=== PATIENT | female | born 1975 | race Two or more races ===

== ENCOUNTER 2020-09-18 16:53 | Emergency (ER) | payer MEDICAID, OTHER ==
[~2020-09-18] VITALS: Ht 152.4 cm; Wt 72.3 kg
[2020-09-18 17:19] VITALS: BP 171/101
[2020-09-18] MEDS ORDERED: ketorolac tromethamine 15mg/ml inj. IM ONE (18:20)
[2020-09-18 18:43] LABS: BASOPHILS # (AUTO) 0.1 X10'3 (0-0.2); BASOPHILS % (AUTO) 0.7 % (0-1); EOSINOPHILS # (AUTO) 0.2 X10'3 (0-0.9); EOSINOPHILS % (AUTO) 2.3 % (0-6); HEMATOCRIT 37.4 % (35.0-45.0); HEMOGLOBIN 12.8 g/dl (12.0-16.0); LYMPHOCYTES # (AUTO) 2.8 X10'3 (1.1-4.8); LYMPHOCYTES % (AUTO) 33.2 % (21-51); MEAN CORPUSCULAR HEMOGLOBIN 31.3 PG (27.0-31.0); MEAN CORPUSCULAR HGB CONC 34.2 g/dL (33.0-36.5); MEAN CORPUSCULAR VOLUME 91.7 FL (78-98); MONOCYTES # (AUTO) 0.5 X10'3 (0-0.9); MONOCYTES % (AUTO) 6.2 % (2-12); NEUTROPHILS # (AUTO) 4.9 X10'3 (1.8-7.7); NEUTROPHILS % (AUTO) 57.6 % (42-75); PLATELET COUNT 389 X10'3 (140-440); RED BLOOD COUNT 4.08 X10'6 (4.20-5.60); WHITE BLOOD COUNT 8.5 X10'3 (4.5-11.0)
[2020-09-18 18:57] LABS: ALANINE AMINOTRANSFERASE 55 U/L (12-78); ALBUMIN 3.8 G/DL (3.4-5.0); ALKALINE PHOSPHATASE 73 IU/L (46-116); ANION GAP 9 (8-16); ASPARTATE AMINO TRANSFERASE 20 U/L (10-37); BILIRUBIN,TOTAL 0.3 MG/DL (0.1-1.0); BLOOD UREA NITROGEN 11 MG/DL (7-18); BUN/CREATININE RATIO 16.2 (6.6-38.0); CALCIUM 10.5 MG/DL (8.5-10.1); CHLORIDE 104 MMOL/L (99-107); CREATININE 0.68 MG/DL (0.40-0.90); GLUCOSE 87 MG/DL (70-104); POTASSIUM 3.7 MMOL/L (3.5-5.1); SODIUM 140 MMOL/L (135-145); TOTAL CARBON DIOXIDE 27.5 MMOL/L (24-32); TOTAL PROTEIN 7.6 G/DL (6.4-8.2); eGFR > 90 ML/MIN
[2020-09-18] MEDS ORDERED: IBUP-1985 PO (19:25)
== END 2020-09-18 19:39 | disposition home or self-care (01) ==
LOC: ER 16:54
DX: H53.8 Other visual disturbances (principal); R51.9 Headache, unspecified; R42 Dizziness and giddiness; I10 Essential (primary) hypertension; Z98.51 Tubal ligation status
CPT/HCPCS: 36415; 70450; 80053; 85025; 96372; 99284; J1885

== ENCOUNTER 2021-07-13 09:12 | Observation (INO) | payer OTHER ==
[2021-07-13] VITALS (10 sets, daily range): BP systolic 106–133; BP diastolic 66–85
[~2021-07-13] VITALS: Ht 152.4 cm; Wt 70.0 kg
[~2021-07-13 09:12] MED LIST: IBUP-1985 PO
[2021-07-13 10:18] LABS: BASOPHILS % (AUTO) 0.6 % (0-1); EOSINOPHILS # (AUTO) 0.1 X10'3 (0-0.9); EOSINOPHILS % (AUTO) 1.3 % (0-6); HEMATOCRIT 38.8 % (35.0-45.0); HEMOGLOBIN 13.3 g/dl (12.0-16.0); LYMPHOCYTES # (AUTO) 1.7 X10'3 (1.1-4.8); LYMPHOCYTES % (AUTO) 24.3 % (21-51); MEAN CORPUSCULAR HEMOGLOBIN 31.5 PG (27.0-31.0); MEAN CORPUSCULAR HGB CONC 34.3 g/dL (33.0-36.5); MEAN CORPUSCULAR VOLUME 91.9 FL (78-98); MEAN PLATELET VOLUME 6.7 FL (7.4-10.4); MONOCYTES # (AUTO) 0.4 X10'3 (0-0.9); MONOCYTES % (AUTO) 5.6 % (2-12); NEUTROPHILS # (AUTO) 4.9 X10'3 (1.8-7.7); NEUTROPHILS % (AUTO) 68.2 % (42-75); PLATELET COUNT 443 X10'3 (140-440); RED BLOOD COUNT 4.22 X10'6 (4.20-5.60); WHITE BLOOD COUNT 7.2 X10'3 (4.5-11.0)
[2021-07-13 10:29] LABS: ALANINE AMINOTRANSFERASE 40 U/L (12-78); ALBUMIN 3.9 G/DL (3.4-5.0); ALKALINE PHOSPHATASE 53 IU/L (46-116); ANION GAP 9 (8-16); ASPARTATE AMINO TRANSFERASE 14 U/L (10-37); BILIRUBIN,TOTAL 0.4 MG/DL (0.1-1.0); BLOOD UREA NITROGEN 16 MG/DL (7-18); CALCIUM 10.1 MG/DL (8.5-10.1); CHLORIDE 106 MMOL/L (99-107); CREATININE 0.84 MG/DL (0.40-0.90); GLUCOSE 94 MG/DL (70-104); POTASSIUM 3.6 MMOL/L (3.5-5.1); SODIUM 141 MMOL/L (135-145); TOTAL CARBON DIOXIDE 26.4 MMOL/L (24-32); TOTAL PROTEIN 7.7 G/DL (6.4-8.2); eGFR 73 ML/MIN
[2021-07-13] MEDS ORDERED: iohexol 350MG/ML 100ml bottle IV ONE ×2 (11:21→16:40)
--- NOTE | 2021-07-13 11:51 | NUR ---
PT IN CT
[2021-07-13] MEDS ORDERED: magnesium hydroxide 30ml (MOM) UD suspension PO PRN (13:10)
[2021-07-13] MEDS ORDERED: mag hydrox/Alum hydrox/simeth 30ml oral suspension PO PRN (13:10)
[2021-07-13] MEDS ORDERED: morphine 2 MG/ML inj. syringe IV PRN ×2 (13:10)
[2021-07-13] MEDS ORDERED: ondansetron/PF 4mg/2ml inj IV PRN (13:10)
[2021-07-13] MEDS ORDERED: LEVO25TA82 PO (13:29)
[2021-07-13] MEDS ORDERED: LISI1TAB51 PO (13:29)
[2021-07-13] MEDS: normal saline 1000ml 1,000 ML IV SCH (13:34)
[2021-07-13] MEDS ORDERED: fentaNYL/PF 50MCG/1 ML 2ML syringe ONE (16:40)
[2021-07-13] MEDS ORDERED: heparin 1,000unit/ml 10ml vial 10 ML ONE (16:40)
[2021-07-13] MEDS ORDERED: nitroGLYCERIN-Tridil 50MG/D5W 250 ML IV ONE (16:40)
[2021-07-13] MEDS ORDERED: midazolam 1 mg/ML 2ml injection ONE (16:40)
[2021-07-13] MEDS ORDERED: LIDOcaine 1% (10mg/ml)w/preservative injection 20ml MDV ONE (16:40)
[2021-07-13] MEDS ORDERED: verapamil 2.5 mg/ml inj IV ONE (16:40)
[2021-07-13] MEDS ORDERED: OXAZEpam 15mg capsule PO PRN (17:55)
[2021-07-13] MEDS ORDERED: proCHLORperazine 10 MG/2 ml inj IV PRN (17:55)
--- NOTE | 2021-07-13 18:33 | NUR ---
1745- pt arrived about this time, R wrist cdi, both hands cool. her R hand has normal cap refill and sensation, pulse ox on R thumb and to tele bank, sr, order to start deflation at 1845. her wrist band is at 15ml per laboratory miller. a/ox4, deny n/v, pain. sbp 124/74, hr 68, 98% RA.
--- NOTE | 2021-07-13 18:37 | NUR ---
Problems reprioritized. Patient report given, questions answered & plan of care reviewed with Danica toure.
--- NOTE | 2021-07-13 19:08 | NUR ---
Patient in room PCU 3023. I have received report from Prashanth SEO and had the opportunity to ask questions and assume patient care.
[2021-07-13] MEDS: docusate sod 100mg capsule PO SCH (19:51)
[2021-07-13] MEDS: heparin, porcine 5000 units/ml vial SQ SCH (19:51)
[2021-07-13] MEDS: acetaminophen 325mg tablet PO PRN (19:53)
--- NOTE | 2021-07-13 21:00 | NUR ---
Wrist air pressure bracelet to R wrist intact post cardiac catheterization. Deflated 3mls at a time Q 15-30 minutes. No bleeding noted. Pt. C/O soreness to R wrist puncture and medial aspect of forearm. Tylenol admin as needed f/good effect. Post cath VSS, up ad sanchez to BR, voiding w/o difficulty, appetite good, bedrest PRN.
[2021-07-14] MEDS: normal saline 1000ml 1,000 ML IV SCH ×2 (00:15→00:16)
[2021-07-14 02:00] VITALS: BP 133/75
[2021-07-14] MEDS: acetaminophen 325mg tablet PO PRN (05:39)
[2021-07-14 05:57] LABS: BASOPHILS % (AUTO) 0.7 % (0-1); EOSINOPHILS # (AUTO) 0.2 X10'3 (0-0.9); EOSINOPHILS % (AUTO) 2.1 % (0-6); HEMATOCRIT 35.6 % (35.0-45.0); HEMOGLOBIN 12.1 g/dl (12.0-16.0); LYMPHOCYTES # (AUTO) 2.5 X10'3 (1.1-4.8); LYMPHOCYTES % (AUTO) 32.9 % (21-51); MEAN CORPUSCULAR HEMOGLOBIN 31.9 PG (27.0-31.0); MEAN CORPUSCULAR VOLUME 93.7 FL (78-98); MEAN PLATELET VOLUME 6.8 FL (7.4-10.4); MONOCYTES # (AUTO) 0.6 X10'3 (0-0.9); MONOCYTES % (AUTO) 8.1 % (2-12); NEUTROPHILS # (AUTO) 4.3 X10'3 (1.8-7.7); NEUTROPHILS % (AUTO) 56.2 % (42-75); PLATELET COUNT 362 X10'3 (140-440); RED CELL DISTRIBUTION WIDTH 13.1 % (11.5-14.5); WHITE BLOOD COUNT 7.6 X10'3 (4.5-11.0)
[2021-07-14 06:00] VITALS: BP 98/57
[2021-07-14 06:24] LABS: ALBUMIN 3.2 G/DL (3.4-5.0); ANION GAP 7 (8-16); BLOOD UREA NITROGEN 15 MG/DL (7-18); BUN/CREATININE RATIO 22.7 (6.6-38.0); CALCIUM 9.3 MG/DL (8.5-10.1); CHLORIDE 110 MMOL/L (99-107); CREATININE 0.66 MG/DL (0.40-0.90); GLUCOSE 88 MG/DL (70-104); POTASSIUM 3.6 MMOL/L (3.5-5.1); SODIUM 141 MMOL/L (135-145); TOTAL CARBON DIOXIDE 24.4 MMOL/L (24-32); eGFR > 90 ML/MIN
--- NOTE | 2021-07-14 06:30 | NUR ---
Patient in room PCU 3023. I have received report from Danica SEO and had the opportunity to ask questions and assume patient care.
--- NOTE | 2021-07-14 08:00 | NUR ---
Problems reprioritized. Patient report given, questions answered & plan of care reviewed with Laura SEO.
[2021-07-14] MEDS: docusate sod 100mg capsule PO SCH (09:15)
[2021-07-14] MEDS: heparin, porcine 5000 units/ml vial SQ SCH (09:15)
[2021-07-14] MEDS ORDERED: PANT-47 PO (10:29)
[2021-07-14 11:00] VITALS: BP 120/75
--- NOTE | 2021-07-14 13:00 | NUR ---
Pt DC to home with family. Pt is a & O and in no apparent distress. Pt verbalizes understanding of all DC orders. She verbalizes the importance of following up with Dr Rosario and PCP. Pt educated about IS, breathing exercises, and taking medications appropriately. Pt given hand outs about chest pain, SOB, [facility] SS. pt's IV removed intact. Pt happy to go home. Pt worry she wants to know what is going on with her. Pt got dressed wheeled to the front and her family pick her up.
== END 2021-07-14 12:57 | disposition home or self-care (01) ==
LOC: ER 09:13 → ED HOLD 13:12 → PCU 3S 17:38
PROVIDERS: ADMIT Family Medicine; ATTEND Family Medicine
DX: R07.89 Other chest pain (principal); R94.39 Abnormal result of other cardiovascular function study; Z20.822 Contact with and (suspected) exposure to COVID-19; R06.02 Shortness of breath; I10 Essential (primary) hypertension; F41.0 Panic disorder [episodic paroxysmal anxiety]; E78.5 Hyperlipidemia, unspecified; Z98.51 Tubal ligation status
CPT/HCPCS: 36415; 71045; 71275; 80048; 80053; 83880; 84484; 85025; 87635; 93005; 93458; 96361; 96372; 96374; 99285; C1769; G0378; J1644; J2001; J2250; J2405; J3010; J7030; Q9967; 99152; A4620; A5120; J3490

== ENCOUNTER 2021-08-09 10:40 | Emergency (ER) | payer MEDICAID ==
[~2021-08-09] VITALS: Ht 152.4 cm; Wt 70.0 kg
[~2021-08-09 10:40] MED LIST changes: -IBUP-1985 PO; +LEVO25TA82 PO; +LISI1TAB51 PO; +PANT-47 PO
[2021-08-09] MEDS ORDERED: CASIRIVIMAB/IMDEVIMAB inject. 10 ML in normal saline 100ml IV soln 100 ML IV ONE (11:55)
[2021-08-09 14:35] VITALS: BP 143/90
== END 2021-08-09 13:54 | disposition home or self-care (01) ==
LOC: ER 10:40
DX: Z20.822 Contact with and (suspected) exposure to COVID-19 (principal); R07.89 Other chest pain; R05 Cough; R50.9 Fever, unspecified; R53.83 Other fatigue; I10 Essential (primary) hypertension; F41.9 Anxiety disorder, unspecified; Z98.51 Tubal ligation status; Z79.899 Other long term (current) drug therapy
CPT/HCPCS: 71045; 99291; M0243; Q0244

== ENCOUNTER 2021-08-25 17:29 | Emergency (ER) | payer MEDICAID ==
[~2021-08-25] VITALS: Ht 152.4 cm; Wt 70.5 kg
[2021-08-25 17:33] VITALS: BP 161/89
== END 2021-08-25 20:37 | disposition home or self-care (01) ==
LOC: ER 17:29
DX: M79.662 Pain in left lower leg (principal); R22.42 Localized swelling, mass and lump, left lower limb; F41.9 Anxiety disorder, unspecified; I10 Essential (primary) hypertension; Z79.899 Other long term (current) drug therapy; Z98.51 Tubal ligation status
CPT/HCPCS: 93971; 99284